=== PATIENT | female | born 1975 | race Two or more races ===

== ENCOUNTER 2017-10-28 10:51 | Outpatient (CLI) | payer OTHER | END 2017-10-28 10:54 | disposition home or self-care (01) | LOC: SONOGRAMA 10:51 | DX: N60.11 Diffuse cystic mastopathy of right breast (principal); N60.12 Diffuse cystic mastopathy of left breast; N63.11 Unspecified lump in the right breast, upper outer quadrant ==

== ENCOUNTER 2017-11-05 19:28 | Emergency (ER) | payer OTHER ==
[~2017-11-05] VITALS: Ht 160 cm; Wt 52.6 kg
[2017-11-05] MEDS ORDERED: TIROSINT88 MCG (19:37)
== END 2017-11-05 21:42 | disposition home or self-care (01) ==
LOC: ER 19:28
DX: S01.82XA Laceration with foreign body of other part of head, initial encounter (principal); W45.8XXA Other foreign body or object entering through skin, initial encounter; Y93.89 Activity, other specified; Y92.830 Public park as the place of occurrence of the external cause; Y99.8 Other external cause status

== ENCOUNTER → 2017-11-12 | Emergency (ER) | payer OTHER ==
[~2017-11-12] VITALS: Ht 157.5 cm; Wt 52.6 kg
[~2017-11-12] MED LIST: TIROSINT88 MCG
== END | disposition home or self-care (01) ==
LOC: ER 06:42
DX: Z48.02 Encounter for removal of sutures (principal)

== ENCOUNTER 2019-11-02 10:50 | Outpatient (CLI) | payer OTHER | END 2019-11-02 10:51 | disposition home or self-care (01) | LOC: SONOGRAMA 10:50 → MAMO-SONO 11:15 | DX: E04.8 Other specified nontoxic goiter (principal) ==

== ENCOUNTER 2021-12-18 13:26 | Outpatient (CLI) | payer OTHER | END 2021-12-18 13:34 | disposition home or self-care (01) | LOC: SONOGRAMA 13:26 | PROVIDERS: ATTEND Internal Medicine Endocrinology, Diabetes & Metabolism | DX: E03.8 Other specified hypothyroidism (principal) ==